=== PATIENT | male | born 1995 | race American Indian/Alaskan Native ===

== ENCOUNTER 2019-04-04 17:06 | Emergency (ER) | payer SELFPAY ==
[2019-04-04] MEDS ORDERED: oxyCODONE /ACETAMINOPHEN 5-325MG TAB PO PRN (18:09)
[2019-04-04] MEDS ORDERED: ONDANSETRON 4 MG ODT TAB PO ONE (18:09)
[2019-04-04] MEDS ORDERED: oxyCODONE /ACETAMINOPHEN 5-325MG TAB PO ONE (18:11)
[2019-04-04 18:43] LABS: Basophils # (Auto) 0.1 K/mm3 (0.0-0.1); Basophils % (Auto) 0.3 % (0.0-1.8); Eosinophils % (Auto) 0.2 % (0.0-4.3); Hematocrit 47.7 % (35.5-45.6); Hemoglobin 15.3 gm/dl (11.8-15.2); Lymphocytes # (Auto) 2.7 K/mm3 (1.2-5.4); Lymphocytes % (Auto) 16.5 % (13.4-35.0); Mean Corpuscular HGB Conc 32 % (32-34); Mean Corpuscular Volume 87 fl (84-94); Monocytes % (Auto) 6.3 % (0.0-7.3); Platelet Count 238 K/mm3 (140-440); Red Blood Count 5.49 M/mm3 (3.65-5.03); Red Cell Distribution Width 12.6 % (13.2-15.2)
[2019-04-04 19:05] LABS: Alanine Aminotransferase 23 units/L (7-56); Albumin 4.9 g/dL (3.9-5); BUN/Creatinine Ratio 10; Blood Urea Nitrogen 12 mg/dL (9-20); Calcium 9.8 mg/dL (8.4-10.2); Hemolysis Index 9
[2019-04-04] MEDS ORDERED: SODIUM CHLORIDE 0.9% 1000 ML 1,000 ML IV ONE (23:28)
--- NOTE | 2019-04-04 23:32 | Emergency Department Report ---
ED Abdominal Pain HPI - General Chief Complaint: Abdominal Pain Stated Complaint: N/V/RT SIDED PAIN Time Seen by Provider: 04/04/19 22:59 Source: patient Mode of arrival: Ambulatory Limitations: No Limitations - History of Present Illness Initial Comments: 23-year-old -[place] male patient without significant past medical history presents with complaints of sudden onset of right lower quadrant pain and vomiting x this morning. Patient states vomiting occurs only with attempted oral intake. He denies any hematemesis/coffee ground emesis, he matochezia/melena, fever/chills/sweats, or dysuria/hematuria/urinary frequency. He rates his pain as a 10/10 in severity. He denies any history of previous abdominal surgeries. MD Complaint: abdominal pain -: Sudden Location: RLQ Severity: severe Severity scale (0 -10): 10 Quality: stabbing Consistency: intermittent Worsens With: nothing - Related Data Previous Rx's Medication Instructions Recorded Last Taken Type Acetaminophen/Codeine [Tylenol 1 tab PO Q6H PRN #15 tab 04/05/19 Unknown Rx /Codeine # 3 tab] Ibuprofen [Motrin] 800 mg PO Q8HR PRN #21 tablet 04/05/19 Unknown Rx Ondansetron [Zofran Odt] 4 mg PO Q8HR PRN #15 tab.rapdis 04/05/19 Unknown Rx Tamsulosin [Flomax] 0.4 mg PO QDAY 3 Days #3 cap 04/05/19 Unknown Rx Allergies Allergy/AdvReac Type Severity Reaction Status Date / Time No Known Allergies Allergy Unverified 04/04/19 17:08 ED Review of Systems ROS: Stated complaint: N/V/RT SIDED PAIN Other details as noted in HPI Constitutional: denies: chills, diaphoresis, fever, malaise Respiratory: denies: cough, shortness of breath Cardiovascular: denies: chest pain Gastrointestinal: abdominal pain, nausea, vomiting. denies: diarrhea, cons tipation, hematemesis, melena, hematochezia Genitourinary: denies: urgency, dysuria, frequency, hematuria Musculoskeletal: denies: back pain Skin: denies: rash, lesions Neurological: denies: headache, weakness, paresthesias Hematological/Lymphatic: denies: swollen glands ED Past Medical Hx - Past Medical History Previous Medical History?: No - Surgical History Past Surgical History?: No - Social History Smoking Status: Never Smoker Substance Use Type: Alcohol - Medications Home Medications: Home Medications Medication Instructions Recorded Confirmed Last Taken Type Acetaminophen/Codeine [Tylenol 1 tab PO Q6H PRN #15 tab 04/05/19 Unknown Rx /Codeine # 3 tab] Ibuprofen [Motrin] 800 mg PO Q8HR PRN #21 tablet 04/05/19 Unknown Rx Ondansetron [Zofran Odt] 4 mg PO Q8HR PRN #15 tab.rapdis 04/05/19 Unknown Rx Tamsulosin [Flomax] 0.4 mg PO QDAY 3 Days #3 cap 04/05/19 Unknown Rx ED Physical Exam - General Limitations: No Limitations General appearance: alert, in no apparent distress - Head Head exam: Present: atraumatic, normocephalic - Eye Eye exam: Present: normal appearance. Absent: scleral icterus - ENT ENT exam: Present: mucous membranes moist - Neck Neck exam: Present: normal inspection - Respiratory Respiratory exam: Present: normal lung sounds bilaterally. Absent: respiratory distress - Cardiovascular Cardiovascular Exam: Present: regular rate, normal rhythm. Absent: systolic murmur, diastolic murmur, rubs, gallop - GI/Abdominal GI/Abdominal exam: Present: soft, tenderness (right lower quadrant), normal bowel sounds. Absent: distended, guarding, rebound, rigid - Extremities Exam Extremities exam: Present: normal inspection. Absent: pedal edema - Back Exam Back exam: Absent: CVA tenderness (R) - Neurological Exam Neurological exam: Present: alert, oriented X3 - Psychiatric Psychiatric exam: Present: normal affect, normal mood - Skin Skin exam: Present: warm, dry, intact, normal color. Absent: rash, cyanosis, diaphoretic ED Course Vital Signs 04/04/19 04/05/19 18:03 01:47 Temperature 97.4 F L 98.5 F Pulse Rate 83 88 Respiratory 18 16 Rate Blood Pressure 134/70 Blood Pressure 125/82 [Left] O2 Sat by Pulse 97 97 Oximetry ED Medical Decision Making - Lab Data Result diagrams: 04/04/19 18:33 04/04/19 18:33 Lab Results 04/04/19 04/04/19 Range/Units 18:33 18:33 WBC 16.6 H (4.5-11.0) K/mm3 RBC 5.49 H (3.65-5.03) M/mm3 Hgb 15.3 H (11.8-15.2) gm/dl Hct 47.7 H (35.5-45.6) % MCV 87 (84-94) fl MCH 28 (28-32) pg MCHC 32 (32-34) % RDW 12.6 L (13.2-15.2) % Plt Count 238 (140-440) K/mm3 Lymph % (Auto) 16.5 (13.4-35.0) % [place] % (Auto) 6.3 (0.0-7.3) % Eos % (Auto) 0.2 (0.0-4.3) % Baso % (Auto) 0.3 (0.0-1.8) % Lymph # 2.7 (1.2-5.4) K/mm3 [place] # 1.0 H (0.0-0.8) K/mm3 Eos # 0.0 (0.0-0.4) K/mm3 Baso # 0.1 (0.0-0.1) K/mm3 Seg Neutrophils % 76.7 H (40.0-70.0) % Seg Neutrophils # 12.7 H (1.8-7.7) K/mm3 Sodium 143 (137-145) mmol/L Potassium 4.1 (3.6-5.0) mmol/L Chloride 105.9 (98-107) mmol/L Carbon Dioxide 21 L (22-30) mmol/L Anion Gap 20 mmol/L BUN 12 (9-20) mg/dL Creatinine 1.2 (0.8-1.5) mg/dL Estimated GFR > 60 ml/min BUN/Creatinine Ratio 10 % Glucose 136 H (75-100) mg/dL Calcium 9.8 (8.4-10.2) mg/dL Total Bilirubin 0.40 (0.1-1.2) mg/dL AST 17 (5-40) units/L ALT 23 (7-56) units/L Alkaline Phosphatase 110 (35-129) units/L Total Protein 7.5 (6.3-8.2) g/dL Albumin 4.9 (3.9-5) g/dL Albumin/Globulin Ratio 1.9 % Lipase 15 (13-60) units/L - Radiology Data Radiology results: report reviewed CT ABDOMEN AND PELVIS WITH CONTRAST HISTORY: Pt complains of R.L.Q. abd pain with N/V X 2 days.. COMPARISON: None. TECHNIQUE: CT images of the abdomen and pelvis were obtained following administration of intravenous contrast. All CT scans at this location are performed using CT dose reduction for ALARA by means of automated exposure control. CONTRAST: 100 ml of intravenous contrast administered. FINDINGS: Lungs/bones: Lung bases are clear. No acute osseous abnormality. Abdomen/pelvis: The liver, gallbladder, spleen, pancreas, adrenals, left kidney, and proximal GI tract appear unremarkable. There is a 4 mm stone in the proximal right ureter with mild hydronephrosis and perinephric stranding. Urinary bladder and prostate are unremarkable with no pelvic free fluid. The appendix is normal. The terminal ileum shows mild wall thickening and dilated fluid-filled appearance. There is also mild wall edema and portions of the colon but no bowel obstruction. IMPRESSION: 1. 4 mm stone in the proximal right ureter with mild hydronephrosis. 2. Abnormal appearance of the ilium and segments of the colon. Inflammatory bowel disease is in the differential. - Medical Decision Making 23-year-old male patient here with complaints of sudden onset of right lower quadrant pain and vomiting this morning. Patient is afebrile and nontoxic tachycardic. CT abdomen with contrast shows 4 mm right kidney stone in the proximal right ureter with mild hydronephrosis and perinephric stranding. CBC shows white count of 16.6, CMP shows normal kidney function. He is afebrile and nontoxic tachycardic. His pain has remained controlled with 1 dose of Percocet. UA is also negative for infection. Patient is nontoxic appearing and stable for discharge home. Will treat with expectorant therapy with Flomax and pain medication. Recommend follow-up with urology. Discussed very strict return precautions in great detail with patient and patient's mother who both state understanding. Specifically patient informed to return to the ED if he has new or worsening symptoms, fever, flank pain, or is unable to pass the stone-patient and patient's mother verbalized understanding. Critical care attestation.: If time is entered above; I have spent that time in minutes in the direct care of this critically ill patient, excluding procedure time. ED Disposition Clinical Impression: Right kidney stone Disposition: DC-01 TO HOME OR SELFCARE Is pt being admited?: No Condition: Stable Instructions: Kidney Stones (ED), How to Strain Your Urine (ED) Prescriptions: Tamsulosin [Flomax] 0.4 mg PO QDAY 3 Days #3 cap Ibuprofen [Motrin] 800 mg PO Q8HR PRN #21 tablet PRN Reason: pain Acetaminophen/Codeine [Tylenol /Codeine # 3 tab] 1 tab PO Q6H PRN #15 tab PRN Reason: pain Ondansetron [Zofran Odt] 4 mg PO Q8HR PRN #15 tab.rapdis PRN Reason: Nausea Referrals: ARLENE BLOOD MD [Staff Physician] - 3-5 Days
--- NOTE | 2019-04-05 00:39 | Cat Scan Report ---
CT ABDOMEN AND PELVIS WITH CONTRAST HISTORY: Pt complains of R.L.Q. abd pain with N/V X 2 days.. COMPARISON: None. TECHNIQUE: CT images of the abdomen and pelvis were obtained following administration of intravenous contrast. All CT scans at this location are performed using CT dose reduction for ALARA by means of automated exposure control. CONTRAST: 100 ml of intravenous contrast administered. FINDINGS: Lungs/bones: Lung bases are clear. No acute osseous abnormality. Abdomen/pelvis: The liver, gallbladder, spleen, pancreas, adrenals, left kidney, and proximal GI tra ct appear unremarkable. There is a 4 mm stone in the proximal right ureter with mild hydronephrosis and perinephric stranding . Urinary bladder and prostate are unremarkable with no pelvic free fluid. The appendix is normal. The terminal ileum shows mild wall thickening and dilated fluid-filled appearance. There is also mild wal l edema and portions of the colon but no bowel obstruction. IMPRESSION: 1. 4 mm stone in the proximal right ureter with mild hydronephrosis. 2. Abnormal appearance of the ilium and segments of the colon. Inflammatory bowel disease is in the d ifferential. Signer Name: Nakul Samson MD Signed: 04/05/2019 12:34 AM Workstation Name: [email or web address]
[2019-04-05 01:49] VITALS: BP 125/82
[2019-04-05 03:12] LABS: Bilirubin,Urine NEG (Negative); Blood,Urine MOD (Negative); Color,Urine Straw (Yellow); Protein,Urine <15 mg/dL mg/dL (Negative); Urobilinogen,Urine < 2.0 mg/dL (<2.0)
== END 2019-04-05 03:52 | disposition home or self-care (01) ==
LOC: ED 17:06
DX: N20.0 Calculus of kidney (principal)
CPT/HCPCS: 36415; 74177; 80053; 81001; 83690; 85025; 96360; 99284; J7030; Q9967; Q0162

== ENCOUNTER 2019-04-09 23:20 | Emergency (ER) | payer SELFPAY ==
[2019-04-09 23:59] LABS: Basophils % (Auto) 0.1 % (0.0-1.8); Eosinophils % (Auto) 0.1 % (0.0-4.3); Hematocrit 40.3 % (35.5-45.6); Hemoglobin 13.8 gm/dl (11.8-15.2); Lymphocytes # (Auto) 1.9 K/mm3 (1.2-5.4); Lymphocytes % (Auto) 15.8 % (13.4-35.0); Mean Corpuscular HGB Conc 34 % (32-34); Mean Corpuscular Volume 85 fl (84-94); Monocytes # (Auto) 1.4 K/mm3 (0.0-0.8); Monocytes % (Auto) 11.5 % (0.0-7.3); Platelet Count 206 K/mm3 (140-440); Red Blood Count 4.73 M/mm3 (3.65-5.03); Red Cell Distribution Width 12.2 % (13.2-15.2)
[2019-04-10 00:16] LABS: Alanine Aminotransferase 18 units/L (7-56); Albumin 4.5 g/dL (3.9-5); BUN/Creatinine Ratio 5; Blood Urea Nitrogen 6 mg/dL (9-20); Calcium 9.2 mg/dL (8.4-10.2); Hemolysis Index 16
[2019-04-10 00:18] LABS: Bilirubin,Urine NEG (Negative); Blood,Urine NEG (Negative); Color,Urine Colorless (Yellow); Protein,Urine <15 mg/dL mg/dL (Negative); Urobilinogen,Urine < 2.0 mg/dL (<2.0)
[2019-04-10] MEDS ORDERED: ONDANSETRON 4 MG/2 ML INJ IV ONE (05:06)
[2019-04-10] MEDS ORDERED: FAMOTIDINE 20 MG/2 ML INJ IV ONE (05:06)
[2019-04-10] MEDS ORDERED: POTASSIUM CHLORIDE ER 20 MEQ TAB PO ONE (05:06)
[2019-04-10] MEDS ORDERED: KETOROLAC 30 MG/1 ML INJ IV ONE (05:35)
--- NOTE | 2019-04-10 07:07 | Emergency Department Report ---
ED N/V/D HPI - General Chief complaint: Abdominal Pain Stated complaint: KIDNEY STONE,LIGHT HEADED,DIFFICULT URINATION Source: patient Mode of arrival: Ambulatory Limitations: No Limitations - History of Present Illness Initial comments: Patient is a 23-year-old gentleman male with no past medical history except for recent diagnosis of kidney stone about one week ago who presents to the ED with persistent left flank pain that radiates to the low back with nausea and vomiting. Patient states that he was initially evaluated in the ED undiagnosed with a 4 mm stone in the left UVJ and was discharged home on pain medications and antiemetics. Patient states that he is unsure as to whether the stone may have passed but was highly advised during his previous visit in the ED that if the pain continued beyond 3 days then he should return to the ED for evaluation. Patient states that she still has the pain now has nausea and vomiting despite taking medications that were previously prescribed. Patient denies fever, chills, dizziness, syncope, chest pain, shortness of breath, diarrhea, hematuria, testicular pain or dysuria. MD complaint: nausea, vomiting, abdominal pain -: Sudden, week(s) (1) Description of Vomiting: watery Associated Abdominal Pain: Yes (mild left flank and lower back pain) Location: flank (left) Radiation: other (lower back) Severity: mild Pain Scale: 2 Quality: aching, sharp Consistency: intermittent Improves with: none Worsens with: none Associated Symptoms: denies other symptoms, loss of appetite, nausea/vomiting. denies: cough, diaphoresis, headaches, malaise, shortness of breath, syncope, weakness - Related Data Previous Rx's Medication Instructions Recorded Last Taken Type Acetaminophen/Codeine [Tylenol 1 tab PO Q6H PRN #15 tab 04/05/19 Unknown Rx /Codeine # 3 tab] Ibuprofen [Motrin] 800 mg PO Q8HR PRN #21 tablet 04/05/19 Unknown Rx Ondansetron [Zofran Odt] 4 mg PO Q8HR PRN #15 tab.rapdis 04/05/19 Unknown Rx Tamsulosin [Flomax] 0.4 mg PO QDAY 3 Days #3 cap 04/05/19 Unknown Rx Ketorolac [Toradol] 10 mg PO Q6H PRN #20 tablet 04/10/19 Unknown Rx Promethazine [Phenergan] 25 mg PO Q6HR PRN #24 tab 04/10/19 Unknown Rx Allergies Allergy/AdvReac Type Severity Reaction Status Date / Time No Known Allergies Allergy Verified 04/09/19 23:31 ED Review of Systems ROS: Stated complaint: KIDNEY STONE,LIGHT HEADED,DIFFICULT URINATION Other details as noted in HPI Constitutional: denies: chills, fever Eyes: denies: eye pain, eye discharge, vision change ENT: denies: ear pain, throat pain Respiratory: denies: cough, shortness of breath, wheezing Cardiovascular: denies: chest pain, palpitations Endocrine: no symptoms reported Gastrointestinal: abdominal pain (left flank pain), nausea, vomiting. denies: diarrhea Genitourinary: denies: urgency, dysuria Musculoskeletal: back pain (lower). denies: joint swelling, arthralgia Skin: denies: rash, lesions Neurological: denies: headache, weakness, paresthesias Psychiatric: denies: anxiety, depression Hematological/Lymphatic: denies: easy bleeding, easy bruising ED Past Medical Hx - Past Medical History Previous Medical History?: Yes Hx Kidney Stones: Yes - Surgical History Past Surgical History?: No - Social History Smoking Status: Never Smoker Substance Use Type: Alcohol - Medications Home Medications: Home Medications Medication Instructions Recorded Confirmed Last Taken Type Acetaminophen/Codeine [Tylenol 1 tab PO Q6H PRN #15 tab 04/05/19 Unknown Rx /Codeine # 3 tab] Ibuprofen [Motrin] 800 mg PO Q8HR PRN #21 tablet 04/05/19 Unknown Rx Ondansetron [Zofran Odt] 4 mg PO Q8HR PRN #15 tab.rapdis 04/05/19 Unknown Rx Tamsulosin [Flomax] 0.4 mg PO QDAY 3 Days #3 cap 04/05/19 Unknown Rx Ketorolac [Toradol] 10 mg PO Q6H PRN #20 tablet 04/10/19 Unknown Rx Promethazine [Phenergan] 25 mg PO Q6HR PRN #24 tab 04/10/19 Unknown Rx ED Physical Exam - General Limitations: No Limitations General appearance: alert, in no apparent distress - Head Head exam: Present: atraumatic, normocephalic, normal inspection - Eye Eye exam: Present: normal appearance, PERRL, EOMI - ENT ENT exam: Present: normal exam, normal orophraynx, mucous membranes moist, TM's normal bilaterally, normal external ear exam - Neck Neck exam: Present: normal inspection, full ROM - Respiratory Respiratory exam: Present: normal lung sounds bilaterally. Absent: respiratory distress, wheezes, rales, stridor, chest wall tenderness, accessory muscle use, prolonged expiratory - Cardiovascular Cardiovascular Exam: Present: regular rate, normal rhythm, normal heart sounds. Absent: systolic murmur, diastolic murmur, rubs, gallop - GI/Abdominal GI/Abdominal exam: Present: soft, normal bowel sounds. Absent: tenderness, guarding, rebound, hyperactive bowel sounds, hypoactive bowel sounds - Extremities Exam Extremities exam: Present: normal inspection, full ROM, normal capillary refill - Back Exam Back exam: Present: normal inspection, full ROM, tenderness (palpable mild lumbosacral paraspinal musculoskeletal tenderness), muscle spasm, paraspinal tenderness. Absent: vertebral tenderness - Neurological Exam Neurological exam: Present: alert, oriented X3, CN II-XII intact, normal gait, reflexes normal - Psychiatric Psychiatric exam: Present: normal affect, normal mood - Skin Skin exam: Present: warm, dry, intact, normal color. Absent: rash ED Course Vital Signs 04/09/19 04/10/19 23:27 06:07 Temperature 98.0 F Pulse Rate 72 Respiratory 18 16 Rate Blood Pressure 127/87 O2 Sat by Pulse 98 Oximetry ED Medical Decision Making - Lab Data Result diagrams: 04/09/19 23:38 04/09/19 23:38 - Medical Decision Making This is a 23-year-old male who was recently diagnosed with kidney stones who presented to the ED with persistent nausea and vomiting and mild left flank pain that radiates to the lower back. Patient is currently on pain medications at home as well as Flomax. Patient states that he feels that kidney stone is still in place although he admits that the pain is mild compared to the initial pain that he had previously presented to the ED with. In the ED, patient is alert and oriented 3 and is not in distress. Lab test results were reviewed and show acute leukocytosis of 12,000 mild hypokalemia of 3.1 mmoles/litre. Patient was treated in the ED with pain medications, antiemetics and also given normal saline 1 L IV bolus. On reevaluation, patient's pain is well controlled me dications, patient sleeping comfortably in the room in no distress. The patient was discharged home on pain medications and antiemetics. Patient was advised that he may have passed the kidney stone and a urinalysis test does not exhibit an sign of hematuria. Patient was advised that the pain is likely residual from the recently passed kidney stones. Patient was advised to follow-up with his primary care physician in 7-10 days for reevaluation or return to the ED immediately if symptoms get worse. - Differential Diagnosis kidney stones; UTI; Muscle spasm; muscle strain; dehydration Critical care attestation.: If time is entered above; I have spent that time in minutes in the direct care of this critically ill patient, excluding procedure time. ED Disposition Clinical Impression: Right kidney stone, Nausea and vomiting in adult, Acute hypokalemia Acute low back pain Qualifiers: Back pain laterality: unspecified Sciatica presence: without sciatica Qualified Code(s): M54.5 - Low back pain Disposition: TO HOME OR SELFCARE Is pt being admited?: No Does the pt Need Aspirin: No Condition: Stable Instructions: Kidney Stones (ED), Acute Nausea and Vomiting (ED), Muscle Spasm (ED) Additional Instructions: Take medications with food, drink plenty of fluids and follow-up with your primary care physician in 5-7 days for reevaluation. Return to the ED immediately if symptoms get worse. Prescriptions: Promethazine [Phenergan] 25 mg PO Q6HR PRN #24 tab PRN Reason: Nausea Ketorolac [Toradol] 10 mg PO Q6H PRN #20 tablet PRN Reason: Pain Referrals: KELI MCKENNA MD [Staff Physician] - 7-10 days Time of Disposition: 07:05 Print Language: ROMANSH
[2019-04-10 07:17] VITALS: BP 109/66
== END 2019-04-10 07:19 | disposition home or self-care (01) ==
LOC: ED 23:20
DX: N20.0 Calculus of kidney (principal); E87.6 Hypokalemia; Z79.1 Long term (current) use of non-steroidal anti-inflammatories (NSAID); Z87.442 Personal history of urinary calculi; Z79.899 Other long term (current) drug therapy
CPT/HCPCS: 36415; 80053; 81001; 85025; 96374; 96375; 99283; J1885; J2405